=== PATIENT | male | born 1990 | race Two or more races ===

== ENCOUNTER 2025-04-24 13:25 | Emergency (ER) | payer MEDICAID, SELFPAY ==
[2025-04-24 13:32] VITALS: BP 122/89
--- NOTE | 2025-04-24 13:36 | ED.GENMED ---
History of Present Illness
General
Chief Complaint: Skin Problem
Time Seen by Provider: 04/24/25 13:36
History of Present Illness
History of Present Illness:
FOCUSED PAST MEDICAL HISTORY
- No significant past medical history but did have a hernia repair in the past
REVIEW OF OLD RECORDS
- No old records available for review in [facility]
Note:
CHIEF COMPLAINT(S)
Widespread rash with itchiness.
HISTORY OF PRESENT ILLNESS
The patient is a 34-year-old male presenting with a widespread rash involving the back, hands, legs, and notable patches of redness on the arms. The rash is described as itchy. There has been no recent medication use, including antibiotics. The rash
was observed on the torso as well, confirmed by a physical exam. The patient denies any difficulty breathing and has not taken any qmft-yej-ferqezg medication such as diphenhydramine (Benadryl).
PLAN
1. Recommend phvp-zui-mngkttk diphenhydramine (Benadryl) for itching relief.
2. Suggest phdf-eww-gclmfla famotidine (Pepcid).
3. Prescribe oral corticosteroids for the current episode and provide a prescription for additional doses for the next few days.
4. Prescription to be sent to the pharmacy on [address] [facility] [address], near the patients location.
5. Advise follow-up with a primary care physician, and inquire if the patient has a primary care provider. Patient mentioned not having one in the current location as they are new to the area from [place].
PHYSICAL EXAM
General: Alert, no acute distress.
Skin: Warm, dry with widespread urticarial rash most notable in the upper extremities and over the torso
Neck: Supple, trachea midline.
Eye Ears, nose, mouth and throat: Oral mucosa moist.
Respiratory: Respirations are non-labored. There is no wheeze.
Gastrointestinal: Abdomen nondistended.
Back: Normal range of motion, Normal alignment.
Musculoskeletal: Normal ROM, normal strength.
Neurological: Alert and oriented to person, place, time, and situation, No focal neurological deficit observed.
Psychiatric: Cooperative, appropriate mood & affect.
SOCIAL DETERMINANTS AFFECTING HEALTH
The patient has recently relocated from [place] and is in the process of settling and finding local healthcare providers. The patient communicated speaking Guatemalan, Maltese, and Burundian, which may affect healthcare interactions.
DIFFERENTIAL DIAGNOSIS
The Differential Diagnosis includes, in no particular order and is not limited to:
1. Allergic urticaria
2. Contact dermatitis
3. Viral exanthem
4. Drug-induced rash
5. Atopic dermatitis (eczema)
6. Psoriasis
7. Food allergy
8. Insect bite reaction
9. Vasculitis
10. Idiopathic urticaria
Disposition:
SUMMARY OF ENCOUNTER
The patient, a 34-year-old male, presented to the emergency department with a widespread, itchy rash on the back, hands, legs, and arms. The clinical examination confirmed patches of redness and rash on the patients torso. The patient was seen for
possible allergic urticaria and to manage this condition effectively. Due to the widespread nature and itchiness of the rash, oral corticosteroids were prescribed. Additionally, recommendations for bmsr-lpe-jrujvud medications, including
diphenhydramine for itching relief and famotidine, were made. The decision to manage the patient this way was to address the acute symptoms and alleviate the patients discomfort promptly.
PLAN
1. Start oral corticosteroids for the current episode, with a prescription for ongoing doses over the next few days, sent to the pharmacy on [facility].
2. Recommend yutk-hgv-kzhywac diphenhydramine for itching relief.
3. Suggest vtsy-dlo-jqtqdoj famotidine.
4. Advise follow-up with a primary care physician considering the patients recent relocation.
PATIENT EDUCATION AND COUNSELING
The patient was advised on the use of corticosteroids and the saky-asw-tfeejfn medications diphenhydramine and famotidine to alleviate symptoms. Emphasis was placed on the importance of finding a local primary care provider as the patient has
recently moved to the area.
FOLLOW-UP INSTRUCTIONS
Instruct the patient to follow up with a primary care physician. Discussed the importance of establishing care with a local provider given the patients recent move to the area.
MEDICATION RECONCILIATION
1. Oral corticosteroids prescribed for current episode.
2. Recommendation for ykms-lel-dnatock diphenhydramine for itching.
3. Recommendation for kkww-qcu-lrrsyyq famotidine.
MEDICAL DECISION MAKING
- Number and Complexity of Problems Addressed: Chronic conditions affecting care include the differential diagnosis: Allergic urticaria, Contact dermatitis, Viral exanthem, Drug-induced rash, Atopic dermatitis, Psoriasis, Food allergy, Insect bite
reaction, Vasculitis, Idiopathic urticaria.
- Risk: Prescription medication was prescribed. Care significantly affected by Social Determinants of Health, as the patient recently relocated and has language considerations (speaks Guatemalan, Maltese, and Burundian) impacting healthcare interactions.
DIAGNOSIS
1. Allergic urticaria (L50.0)
Phy Exam
Physical Exam
Physical Exam:
See HPI
Course
Orders/Labs/Results
Orders:
Orders
04/24/25 14:02
Prednisone [Deltasone] 50 mg PO NOW STA
Vital Signs
Initial and Last Documented VS:
Initial Vital Signs
Temp Pulse Resp BP Pulse Ox
36.8 C 74 18 122/89 99
04/24/25 13:32 04/24/25 13:32 04/24/25 13:32 04/24/25 13:32 04/24/25 13:32
Last Documented Vital Signs
Temp Pulse Resp BP Pulse Ox
36.8 C 74 18 122/89 99
04/24/25 13:32 04/24/25 13:32 04/24/25 13:32 04/24/25 13:32 04/24/25 13:38
*Pulse Oximetry
SaO2: 99
Oxygen Mode of Delivery: Room air
Patient hypoxic: no
*Critical Care Note
Total Time (30-74mins, 75-104mins- exclusive of procedures): Not Applicable
ED Attending Note
-
Portions of this chart may have been created with voice recognition software.� Occasional wrong word or��sound alike� substitutions may have occurred due to the inherent limitations of voice recognition software.
Discharge Plan
Departure
Patient Disposition: Home (Routine Discharge)
Date of Disposition: 04/24/25
Time of Disposition: 14:03
Patient with high blood pressure during this ER visit?: Yes
Discharge Problem:
Urticaria
Instructions: Hives, BLOOD PRESSURE
Prescriptions:
New
prednisone 50 mg tablet
50 mg PO DAILY Qty: 4 0RF
Referrals:
UNKNOWN - PT DOES,NOT KNOW [Family Provider]
Activity Restrictions/Additional Instructions:
Next dose of steroids tomorrow morning. I sent a prescription to your pharmacy for 4 additional days of steroids. I strongly recommend that you also use vnfo-sff-gebgxhl Benadryl�you could use 1 pill every 6 hours as needed. This will cause some
sedation so I recommend you not drive if you take the Benadryl. You can also take zfye-wqv-xdrsclx Pepcid which also is a histamine sara.
Ertaga ertalab steroidlarning keyingi dozanola. Men sizning dorixonangizga qo'shimcha 4 kunlik steroidlar uchun retsept yubordim. Men sizga retseptsiz Benadryl jaleesa ham foydalanishni qat'iy tavsiya qilaman - kerak yolanda'lganda cem 6 soatda 1 tabletkadan
foydalanishingiz mumkin. Bu magdy tinchlaniprashanthga do ayala uchun siz Benadrylni melody friendaslielsie chilel. Vincenzo, noman gistamin blokeri yolanda'lgan Pepcidni retseptsiz qabul qilishingiz mumkin.
Interventions
Interventions:
*Risk Screen - Suicide Last Done: 04/24/25 13:32
*General Assessment Last Done: 04/24/25 13:32
*Neglect/Abuse Screening Last Done: 04/24/25 13:32
*ED- Fall Risk Assessment Last Done: 04/24/25 13:32
*ED COVID-19 Vaccine History Last Done: 04/24/25 13:32
*ED Influenza Vaccine History Last Done: 04/24/25 13:32
Discharge Date and Time
Print Language: ICELANDIC
[2025-04-24] MEDS: DELTASONE 50 MG PO (14:12)
== END 2025-04-24 14:16 | disposition home or self-care (01) ==
LOC: EMR 13:25
PROVIDERS: EMERGENCY PHYSICIAN Emergency Medicine
DX: L50.0 Allergic urticaria (principal)
CPT/HCPCS: 99283